=== PATIENT | female | born 1970 | race Caucasian/White ===

== ENCOUNTER 2021-01-28 16:02 | Inpatient (IN) ==
[2021-01-28] MEDS ORDERED: Naloxone 0.4 MG/ML INJ IVP PRN (22:48)
[2021-01-28] MEDS ORDERED: Melatonin 3 MG TABLET PO PRN (22:48)
[2021-01-29 01:14] LABS: Adenovirus Not Detected (Not Detect); Bordetella Pertussis Not Detected (Not Detect); Chlamydophila pneumoniae Not Detected (Not Detect); Coronavirus 229E Not Detected (Not Detect); Coronavirus HKU1 Not Detected (Not Detect); Coronavirus NL63 Not Detected (Not Detect); Coronavirus OC43 Not Detected (Not Detect); Human Metapneumovirus Not Detected (Not Detect); Human Rhinovirus/Enterovirus Not Detected (Not Detect); Influenza A Subtype 2009 H1 Not Detected (Not Detect); Influenza B Not Detected (Not Detect); Mycoplasma pneumoniae Not Detected (Not Detect); Parainfluenza Virus 1 Not Detected (Not Detect); Parainfluenza Virus 2 Not Detected (Not Detect); Parainfluenza Virus 3 Not Detected (Not Detect); Parainfluenza Virus 4 Not Detected (Not Detect); Respiratory Syncytial Virus Not Detected (Not Detect); SARS-CoV-2 Not Detected (Not Detect)
[2021-01-29 01:18] LABS: Basophils % 0.3 %; Eosinophils # 0.1 K/mcL (0.0-0.6); Eosinophils % 0.7 %; Hematocrit 39.3 % (35.3-44.9); Hemoglobin 14.2 g/dL (11.5-15.4); Immature Granulocytes % 1.6 % (0-4); Lymphocytes # 1.9 K/mcL (0.6-4.6); Mean Corpuscular HGB Conc 36.1 g/dL (31.6-35.5); Mean Corpuscular Hemoglobin 31.3 pg (28.0-33.3); Mean Corpuscular Volume 86.6 fL (83.0-100.0); Mean Platelet Volume 9.5 fL (9.4-12.4); Monocytes # 0.9 K/mcL (0.0-1.3); Monocytes % 5.9 %; Neutrophils # 12.3 K/mcL (1.6-8.9); Platelet Count 204 K/mcL (140-400); Red Blood Count 4.54 M/mcL (3.82-4.97); Red Cell Distribution Width 13.4 % (11.5-14.5); Segmented Neutrophils % 79.5 %; White Blood Count 15.5 K/mcL (4.3-11.1)
[2021-01-29 01:37] LABS: Albumin 3.1 g/dL (3.5-5.7); Albumin/Globulin Ratio 1.6 (1.1-2.2); Bilirubin,Direct 0.2 mg/dL (0.0-0.2); Bilirubin,Indirect 0.8 mg/dL (0.0-1.0); Chol/HDL Ratio 2.2 (0-4.9); Total Protein 5.1 g/dL (6.4-8.9)
[2021-01-29 01:57] LABS: BUN/Creatinine Ratio 16 (6-26); Blood Urea Nitrogen 18 mg/dL (6-20); Calcium 7.6 mg/dL (8.6-10.3); Carbon Dioxide 24 mEq/L (23-29); Chloride 73 mEq/L (98-107); Glucose 106 mg/dL (70-105); Osmolality,Calculated 224 (280-300); Potassium 3.5 mEq/L (3.5-5.1); Sodium 106 mEq/L (136-145); Troponin I 0.06 ng/mL (< 0.04); eGFR For African Americans > 60 (> 60); eGFR For Non-African Americans 51 (> 60)
[2021-01-29] MEDS ORDERED: Perflutren Lipid Microsphere 1.3 ML in 0.9 % Sodium Chloride 8.7 ML IVP PRN (02:22)
[2021-01-29] MEDS ORDERED: 0.9 % Sodium Chloride 1,000 ML IVC SCH ×3 (02:45→16:15)
[2021-01-29] MEDS ORDERED: Furosemide 20 MG/2 ML VIAL IVP ONE (02:45)
[2021-01-29 03:10] LABS: Chloride,Urine < 15 mEq/L; Potassium,Urine 42.8 mEq/L; Sodium, Urine < 10.0 mEq/L
[2021-01-29] MEDS: *HR* Heparin 5,000 UNIT/ML VIAL SQ SCH ×2 (05:28→17:06)
[2021-01-29 08:26] LABS: Troponin I 0.11 ng/mL (< 0.04)
[2021-01-29] MEDS: Furosemide 20 MG/2 ML VIAL IVP SCH ×2 (15:45→20:40)
[2021-01-29 16:57] LABS: Troponin I 0.03 ng/mL (< 0.04)
[2021-01-29 18:11] LABS: Bacteria,Urine Few per hpf (None-Few); Mucus,Urine Few per lpf (None-Few); RBC,Urine 0-3 per hpf (0-3); Squamous Epithelial Cell,Urine Few per hpf (None-Few); WBC,Urine 0-3 per hpf (0-3)
[2021-01-29 18:13] LABS: Protein/Creatinine Ratio,Urine 0.26 mg/mg (0.00-0.20)
[2021-01-29 18:22] LABS: Bilirubin,Urine Negative (Negative); Blood,Urine Moderate (Negative); Clarity,Urine Clear (Clear); Color,Urine Light-Yellow (Yellow); Glucose,Urine (UA) Normal (Normal); Ketones,Urine Negative (Negative); Leukocyte Esterase,Urine Negative (Negative); Nitrite,Urine Negative (Negative); PH,Urine 6.5 pH Units (5.0-8.0); Protein,Urine Negative (Neg-Trace); Specific Gravity,Urine 1.006 (1.010-1.025); Urobilinogen,Urine Normal (Normal)
[2021-01-30 02:25] LABS: Basophils % 0.3 %; Eosinophils # 0.1 K/mcL (0.0-0.6); Eosinophils % 0.9 %; Hematocrit 36.1 % (35.3-44.9); Hemoglobin 12.6 g/dL (11.5-15.4); Immature Granulocytes % 1.1 % (0-4); Lymphocytes # 1.8 K/mcL (0.6-4.6); Lymphocytes % 17.7 %; Mean Corpuscular HGB Conc 34.9 g/dL (31.6-35.5); Mean Corpuscular Hemoglobin 31.3 pg (28.0-33.3); Mean Corpuscular Volume 89.8 fL (83.0-100.0); Mean Platelet Volume 9.7 fL (9.4-12.4); Monocytes # 0.9 K/mcL (0.0-1.3); Monocytes % 8.3 %; Neutrophils # 7.4 K/mcL (1.6-8.9); Platelet Count 194 K/mcL (140-400); Red Blood Count 4.02 M/mcL (3.82-4.97); Red Cell Distribution Width 13.6 % (11.5-14.5); Segmented Neutrophils % 71.7 %; White Blood Count 10.3 K/mcL (4.3-11.1)
[2021-01-30 02:53] LABS: BUN/Creatinine Ratio 13 (6-26); Blood Urea Nitrogen 13 mg/dL (6-20); Carbon Dioxide 27 mEq/L (23-29); Chloride 81 mEq/L (98-107); Glucose 83 mg/dL (70-105); Magnesium 1.8 mg/dL (1.6-2.6); Osmolality,Calculated 239 (280-300); Phosphorous 2.6 mg/dL (2.7-4.5); Potassium 3.3 mEq/L (3.5-5.1); Sodium 115 mEq/L (136-145); eGFR For African Americans > 60 (> 60); eGFR For Non-African Americans 57 (> 60)
[2021-01-30] MEDS ORDERED: Potassium Phosphate 44 MEQ in 0.9 % Sodium Chloride 250 ML IVPB ONE (09:25)
[2021-01-30] MEDS: *HR* Heparin 5,000 UNIT/ML VIAL SQ SCH ×2 (09:48→17:06)
[2021-01-30] MEDS ORDERED: Ipratropium/Albuterol Neb 3 ML IH PRN (13:26)
[2021-01-30] MEDS ORDERED: 0.9 % Sodium Chloride 1,000 ML IVC SCH (13:45)
[2021-01-30] MEDS: Cholecalciferol (D-3) 1,000 UNIT (25MCG) TABLET PO SCH (13:56)
[2021-01-30] MEDS: Folic Acid 1 MG TABLET PO SCH (13:57)
[2021-01-30] MEDS ORDERED: polyethylene glycoL 3350 17 GM POWD.PACK PO PRN (14:32)
[2021-01-30] MEDS: *HR* Buprenorphine HCl 8 MG TAB.SUBL SL SCH ×2 (15:50→15:53)
[2021-01-31] MEDS: *HR* Heparin 5,000 UNIT/ML VIAL SQ SCH ×2 (05:29→17:20)
[2021-01-31 07:21] LABS: BUN/Creatinine Ratio 10 (6-26); Blood Urea Nitrogen 9 mg/dL (6-20); Calcium 8.5 mg/dL (8.6-10.3); Carbon Dioxide 29 mEq/L (23-29); Chloride 91 mEq/L (98-107); Glucose 97 mg/dL (70-105); Magnesium 2.2 mg/dL (1.6-2.6); Osmolality,Calculated 263 (280-300); Phosphorous 2.9 mg/dL (2.7-4.5); Potassium 3.6 mEq/L (3.5-5.1); Sodium 127 mEq/L (136-145); eGFR For African Americans > 60 (> 60); eGFR For Non-African Americans > 60 (> 60)
[2021-01-31] MEDS: Folic Acid 1 MG TABLET PO SCH (08:00)
[2021-01-31] MEDS ORDERED: D5% in Water 1,000 ML IVC SCH (08:00)
[2021-01-31] MEDS: Cholecalciferol (D-3) 1,000 UNIT (25MCG) TABLET PO SCH (08:00)
[2021-01-31] MEDS: *HR* Buprenorphine HCl 8 MG TAB.SUBL SL SCH ×3 (08:16→19:54)
[2021-01-31] MEDS ORDERED: Lidocaine Viscous Oral Soln 15 ML SOLUTION MM PRN (10:37)
[2021-01-31] MEDS ORDERED: *HR* Midazolam HCl 2 MG/2 ML VIAL IVP PRN (10:38)
[2021-01-31] MEDS ORDERED: 0.9 % Sodium Chloride 500 ML IVC ONE (10:38)
[2021-01-31 10:39] LABS: Basophils % 0.3 %; Eosinophils # 0.1 K/mcL (0.0-0.6); Eosinophils % 0.7 %; Hematocrit 34.2 % (35.3-44.9); Hemoglobin 11.9 g/dL (11.5-15.4); Immature Granulocytes % 0.9 % (0-4); Lymphocytes # 2.5 K/mcL (0.6-4.6); Lymphocytes % 22.4 %; Mean Corpuscular HGB Conc 34.8 g/dL (31.6-35.5); Mean Corpuscular Hemoglobin 32.1 pg (28.0-33.3); Mean Corpuscular Volume 92.2 fL (83.0-100.0); Mean Platelet Volume 9.9 fL (9.4-12.4); Monocytes # 1.2 K/mcL (0.0-1.3); Monocytes % 10.6 %; Neutrophils # 7.2 K/mcL (1.6-8.9); Platelet Count 267 K/mcL (140-400); Red Blood Count 3.71 M/mcL (3.82-4.97); Red Cell Distribution Width 13.8 % (11.5-14.5); Segmented Neutrophils % 65.1 %; White Blood Count 11.1 K/mcL (4.3-11.1)
[2021-01-31] MEDS ORDERED: *HR* Midazolam HCl 5 MG/5 ML VIAL IVP ONE (11:00)
[2021-01-31] MEDS: *HR* FentaNYL (PF) 100 MCG/2 ML VIAL IVP PRN ×2 (11:25→11:30)
[2021-01-31] MEDS: *HR* Midazolam HCl 5 MG/5 ML VIAL IVP ONE ×2 (11:30→11:35)
[2021-01-31] MEDS: Furosemide 20 MG/2 ML VIAL IVP SCH ×2 (12:51→19:53)
[2021-02-01 05:18] LABS: Basophils % 0.3 %; Eosinophils # 0.2 K/mcL (0.0-0.6); Eosinophils % 1.6 %; Hematocrit 33.7 % (35.3-44.9); Hemoglobin 11.4 g/dL (11.5-15.4); Immature Granulocytes % 0.9 % (0-4); Lymphocytes # 2.6 K/mcL (0.6-4.6); Lymphocytes % 23.3 %; Mean Corpuscular HGB Conc 33.8 g/dL (31.6-35.5); Mean Corpuscular Hemoglobin 31.8 pg (28.0-33.3); Mean Corpuscular Volume 93.9 fL (83.0-100.0); Mean Platelet Volume 9.4 fL (9.4-12.4); Monocytes # 1.2 K/mcL (0.0-1.3); Monocytes % 10.9 %; Platelet Count 253 K/mcL (140-400); Red Blood Count 3.59 M/mcL (3.82-4.97); Red Cell Distribution Width 14.2 % (11.5-14.5); White Blood Count 11.1 K/mcL (4.3-11.1)
[2021-02-01] MEDS: *HR* Heparin 5,000 UNIT/ML VIAL SQ SCH (05:29)
[2021-02-01 05:30] LABS: BUN/Creatinine Ratio 8 (6-26); Blood Urea Nitrogen 9 mg/dL (6-20); Calcium 8.5 mg/dL (8.6-10.3); Carbon Dioxide 31 mEq/L (23-29); Chloride 91 mEq/L (98-107); Glucose 107 mg/dL (70-105); Magnesium 1.9 mg/dL (1.6-2.6); Osmolality,Calculated 267 (280-300); Phosphorous 2.7 mg/dL (2.7-4.5); Potassium 3.4 mEq/L (3.5-5.1); Sodium 129 mEq/L (136-145); eGFR For African Americans > 60 (> 60); eGFR For Non-African Americans 54 (> 60)
[2021-02-01] MEDS: Cholecalciferol (D-3) 1,000 UNIT (25MCG) TABLET PO SCH (08:00)
[2021-02-01] MEDS: Folic Acid 1 MG TABLET PO SCH (08:00)
[2021-02-01] MEDS: *HR* Buprenorphine HCl 8 MG TAB.SUBL SL SCH (08:00)
[2021-02-01] MEDS: Furosemide 20 MG/2 ML VIAL IVP SCH (08:02)
[2021-02-01 10:25] LABS: HSV 1 Glycoprotein G IgG 4.95 IV (<=0.89); HSV 2 Glycoprotein G IgG 0.19 IV (<=0.89)
[2021-02-01 10:32] VITALS: BP 118/48; PULSE 66; TEMP 97.7; O2SAT 94
[2021-02-01] MEDS ORDERED: Hydrocortisone 10 MG TABLET PO SCH ×2 (15:00→21:00)
[2021-02-01] MEDS ORDERED: Isovue-370 500 ML BOTTLE IVP ONE (15:27)
[2021-02-03 08:15] LABS: Mycoplasma pneumoniae IgG 0.23 U/L (<=0.09)
== END 2021-02-01 18:55 | disposition home or self-care (01) | DRG 426 ==
LOC: 2NENU
PROVIDERS: ADMIT Student in an Organized Health Care Education/Training Program; ATTEND Student in an Organized Health Care Education/Training Program

== ENCOUNTER 2021-03-03 20:28 | Inpatient (IN) ==
[2021-03-03 21:23] LABS: Hematocrit 37.5 % (35.3-44.9); Immature Granulocytes % 0.7 % (0-4)
[2021-03-03 21:25] LABS: Basophils % 0.2 %; Eosinophils # 0.1 K/mcL (0.0-0.6); Eosinophils % 1.1 %; Hemoglobin 13.3 g/dL (11.5-15.4); Immature Platelets 7.5 % (1.1-6.1); Lymphocytes # 1.4 K/mcL (0.6-4.6); Lymphocytes % 24.5 %; Mean Corpuscular HGB Conc 35.5 g/dL (31.6-35.5); Mean Corpuscular Hemoglobin 31.1 pg (28.0-33.3); Mean Corpuscular Volume 87.8 fL (83.0-100.0); Mean Platelet Volume 11.5 fL (9.4-12.4); Monocytes # 0.6 K/mcL (0.0-1.3); Monocytes % 9.6 %; Neutrophils # 3.6 K/mcL (1.6-8.9); Platelet Count 199 K/mcL (140-400); Red Blood Count 4.27 M/mcL (3.82-4.97); Red Cell Distribution Width 13.9 % (11.5-14.5); Segmented Neutrophils % 63.9 %; White Blood Count 5.7 K/mcL (4.3-11.1)
[2021-03-03 21:48] LABS: Activated Partial Thrombo Time 38.9 Seconds (26.0-36.0)
[2021-03-03 21:50] LABS: Albumin/Globulin Ratio 1.4 (1.1-2.2); Bilirubin,Total 0.6 mg/dL (0.3-1.0); Calcium 9.1 mg/dL (8.6-10.3); Globulin 2.9 g/dL (2.4-3.5); Potassium 3.5 mEq/L (3.5-5.1); Total Protein 6.9 g/dL (6.4-8.9); Troponin I 0.03 ng/mL (< 0.04)
[2021-03-03] MEDS ORDERED: Isovue-370 500 ML BOTTLE IVP ONE (21:50)
[2021-03-03] MEDS ORDERED: 0.9 % Sodium Chloride 1,000 ML IV ONE (21:51)
[2021-03-03 22:28] LABS: Bacteria,Urine Few per hpf (None-Few); Bilirubin,Urine Negative (Negative); Blood,Urine Negative (Negative); Clarity,Urine Turbid (Clear); Color,Urine Yellow (Yellow); Glucose,Urine (UA) Normal (Normal); Hyaline Casts,Urine Few per lpf (None Seen); Ketones,Urine Negative (Negative); Leukocyte Esterase,Urine Negative (Negative); Mucus,Urine Few per lpf (None-Few); Nitrite,Urine Negative (Negative); Protein,Urine Trace mg/dL (Neg-Trace); RBC,Urine 0-3 per hpf (0-3); Specific Gravity,Urine 1.012 (1.010-1.025); Squamous Epithelial Cell,Urine Moderate per hpf (None-Few); Urobilinogen,Urine Normal (Normal)
[2021-03-04] MEDS ORDERED: Hydrocortisone Sodium Succ 100 MG/2 ML VIAL IVP ONE (01:23)
[2021-03-04] MEDS ORDERED: Naloxone 0.4 MG/ML INJ IVP PRN (01:27)
[2021-03-04] MEDS ORDERED: Melatonin 3 MG TABLET PO PRN (01:27)
[2021-03-04] MEDS ORDERED: *HR* Heparin 5,000 UNIT/ML VIAL IVP PRN ×2 (01:37)
[2021-03-04] MEDS ORDERED: *HR* Heparin 5,000 UNIT/ML VIAL IVP ONE (01:37)
[2021-03-04] MEDS ORDERED: Nicotine 14 MG PATCH.TD24 TD SCH (02:33)
[2021-03-04] MEDS: Heparin 25,000UNIT/250ML 1/2NS 25,000 UNIT/250 ML IV.SOLN IVC SCH ×2 (03:18→23:52)
[2021-03-04 05:46] LABS: Hematocrit 31.1 % (35.3-44.9); Mean Corpuscular HGB Conc 35.7 g/dL (31.6-35.5); Mean Corpuscular Hemoglobin 31.1 pg (28.0-33.3); Mean Corpuscular Volume 87.1 fL (83.0-100.0); Mean Platelet Volume 11.3 fL (9.4-12.4); Platelet Count 184 K/mcL (140-400); Red Blood Count 3.57 M/mcL (3.82-4.97); Red Cell Distribution Width 14.1 % (11.5-14.5)
[2021-03-04 05:53] LABS: Hemoglobin 11.1 g/dL (11.5-15.4)
[2021-03-04 06:02] LABS: INR 1.3; Prothrombin Time 14.7 Seconds (9.4-12.1)
[2021-03-04 06:41] LABS: Heparin anti-factor XA UFH 1.75 IU/mL (0.30-0.70)
[2021-03-04] MEDS ORDERED: Hydrocortisone Sodium Succ 100 MG/2 ML VIAL IVP SCH (07:00)
[2021-03-04 07:57] LABS: Calcium 8.5 mg/dL (8.6-10.3); Magnesium 2.1 mg/dL (1.6-2.6); Potassium 2.9 mEq/L (3.5-5.1)
[2021-03-04] MEDS: Folic Acid 1 MG TABLET PO SCH (08:54)
[2021-03-04] MEDS: Hydrocortisone Sodium Succ 100 MG/2 ML VIAL IVP SCH ×3 (08:54→19:47)
[2021-03-04] MEDS ORDERED: (Buprenorphine Hcl/Naloxone Hcl 8MG/2MG) PO SCH (09:00)
[2021-03-04] MEDS ORDERED: 0.9 % Sodium Chloride 500 ML ONE (09:32)
[2021-03-04] MEDS: 0.9 % Sodium Chloride 2,000 ML IVC SCH ×2 (10:48→18:18)
[2021-03-04 11:27] LABS: Calcium 8.2 mg/dL (8.6-10.3); Potassium 2.8 mEq/L (3.5-5.1)
[2021-03-04] MEDS: Piperacillin/Tazobactam 3.375 GM in 0.9 % Sodium Chloride Mini Bag 100 ML IVPB SCH (15:28)
[2021-03-04 15:57] LABS: Sodium, Urine 22.2 mEq/L
[2021-03-04 16:38] LABS: Calcium 8.7 mg/dL (8.6-10.3); Potassium 3.5 mEq/L (3.5-5.1)
[2021-03-04] MEDS ORDERED: Ondansetron 4 MG/2 ML VIAL IVP ONE (18:24)
[2021-03-04] MEDS: *HR* Buprenorphine HCl 8 MG TAB.SUBL SL SCH (19:47)
[2021-03-04] MEDS ORDERED: Nicotine 2 MG GUM BC PRN (19:49)
[2021-03-05] MEDS: Piperacillin/Tazobactam 3.375 GM in 0.9 % Sodium Chloride Mini Bag 100 ML IVPB SCH ×3 (00:15→15:49)
[2021-03-05] MEDS: Nicotine 21 MG PATCH.TD24 TD SCH ×2 (03:25→09:44)
[2021-03-05] MEDS: 0.9 % Sodium Chloride 2,000 ML IVC SCH ×2 (03:26→22:40)
[2021-03-05] MEDS: Hydrocortisone Sodium Succ 100 MG/2 ML VIAL IVP SCH ×4 (03:28→20:52)
[2021-03-05] MEDS: Folic Acid 1 MG TABLET PO SCH (08:40)
[2021-03-05] MEDS: *HR* Buprenorphine HCl 8 MG TAB.SUBL SL SCH ×2 (08:41→20:51)
[2021-03-05] MEDS: Megestrol Acetate 400 MG/10 ML UDC PO SCH ×2 (09:46→20:52)
[2021-03-05] MEDS: Aspirin 81 MG TAB.CHEW PO SCH (09:46)
[2021-03-05 10:16] LABS: Basophils % 0.1 %; Hematocrit 32.6 % (35.3-44.9); Hemoglobin 11.2 g/dL (11.5-15.4); Immature Granulocytes % 0.8 % (0-4); Lymphocytes # 0.5 K/mcL (0.6-4.6); Mean Corpuscular HGB Conc 34.4 g/dL (31.6-35.5); Mean Corpuscular Hemoglobin 30.6 pg (28.0-33.3); Mean Corpuscular Volume 89.1 fL (83.0-100.0); Mean Platelet Volume 10.8 fL (9.4-12.4); Monocytes # 0.3 K/mcL (0.0-1.3); Monocytes % 3.3 %; Neutrophils # 6.8 K/mcL (1.6-8.9); Platelet Count 212 K/mcL (140-400); Red Blood Count 3.66 M/mcL (3.82-4.97); Red Cell Distribution Width 13.9 % (11.5-14.5); Segmented Neutrophils % 88.8 %; White Blood Count 7.7 K/mcL (4.3-11.1)
[2021-03-05 10:50] LABS: Calcium 8.8 mg/dL (8.6-10.3); Potassium 3.6 mEq/L (3.5-5.1)
[2021-03-05] MEDS: Heparin 25,000UNIT/250ML 1/2NS 25,000 UNIT/250 ML IV.SOLN IVC SCH (15:57)
[2021-03-05 23:24] LABS: Calcium 8.6 mg/dL (8.6-10.3); Potassium 3.5 mEq/L (3.5-5.1)
[2021-03-06] MEDS: Hydrocortisone Sodium Succ 100 MG/2 ML VIAL IVP SCH (03:46)
[2021-03-06] MEDS: 0.9 % Sodium Chloride 2,000 ML IVC SCH (05:14)
[2021-03-06] MEDS ORDERED: *HR* Enoxaparin 40 MG/0.4 ML SYRINGE SQ SCH (06:00)
[2021-03-06 06:24] LABS: Basophils % 0.1 %; Hematocrit 31.1 % (35.3-44.9); Hemoglobin 10.6 g/dL (11.5-15.4); Immature Granulocytes % 0.9 % (0-4); Lymphocytes # 0.8 K/mcL (0.6-4.6); Lymphocytes % 7.6 %; Mean Corpuscular HGB Conc 34.1 g/dL (31.6-35.5); Mean Corpuscular Hemoglobin 31.2 pg (28.0-33.3); Mean Corpuscular Volume 91.5 fL (83.0-100.0); Monocytes # 0.7 K/mcL (0.0-1.3); Monocytes % 6.1 %; Neutrophils # 9.1 K/mcL (1.6-8.9); Platelet Count 193 K/mcL (140-400); Red Cell Distribution Width 14.1 % (11.5-14.5); Segmented Neutrophils % 85.3 %; White Blood Count 10.7 K/mcL (4.3-11.1)
[2021-03-06 07:01] LABS: Calcium 8.8 mg/dL (8.6-10.3); Potassium 3.6 mEq/L (3.5-5.1)
[2021-03-06] MEDS: Megestrol Acetate 400 MG/10 ML UDC PO SCH (08:52)
[2021-03-06] MEDS: *HR* Buprenorphine HCl 8 MG TAB.SUBL SL SCH (08:52)
[2021-03-06] MEDS: Aspirin 81 MG TAB.CHEW PO SCH (08:52)
[2021-03-06] MEDS: Folic Acid 1 MG TABLET PO SCH (08:52)
[2021-03-06] MEDS: Nicotine 21 MG PATCH.TD24 TD SCH (08:53)
[2021-03-06] MEDS ORDERED: Hydrocortisone 10 MG TABLET PO SCH ×2 (09:00→16:00)
[2021-03-06 10:01] VITALS: BP 178/78; PULSE 66; TEMP 97.7; O2SAT 95
== END 2021-03-06 12:58 | disposition home or self-care (01) | DRG 424 ==
LOC: 3ANU 20:28 → EMEROOARM 20:28 → SUATTDRO 03-04 01:27 → 3ANU 03-04 02:25
PROVIDERS: ADMIT Internal Medicine; ATTEND Hospitalist

== ENCOUNTER 2021-05-06 06:30 | Inpatient (IN) ==
[2021-05-06] MEDS ORDERED: Naloxone 0.4 MG/ML INJ IVP PRN (12:40)
[2021-05-06] MEDS: *HR* Heparin 5,000 UNIT/ML VIAL SQ SCH ×2 (15:42→23:02)
[2021-05-06 16:16] LABS: ABG Base Excess 5 mEq/L (-2 to 3); ABG HCO3 30 mEq/L (21-27); ABG Oxygen Saturation 95 % (95-98); ABG PCO2 45 mmHg (35-45); ABG PH 7.44 pH Units (7.32-7.45); ABG PO2 75 mmHg (85-104); ABG TCO2 32 mEq/L (20-26)
[2021-05-06] MEDS ORDERED: Ondansetron ODT 4 MG TAB.RAPDIS PO PRN (18:18)
[2021-05-07] MEDS: *HR* Heparin 5,000 UNIT/ML VIAL SQ SCH ×3 (06:00→20:12)
[2021-05-07 07:53] LABS: Basophils # 0.1 K/mcL (0.0-0.2); Basophils % 0.7 %; Eosinophils # 0.1 K/mcL (0.0-0.6); Eosinophils % 1.2 %; Hematocrit 38.7 % (35.3-44.9); Hemoglobin 12.7 g/dL (11.5-15.4); Immature Granulocytes % 2.3 % (0-4); Lymphocytes # 2.4 K/mcL (0.6-4.6); Lymphocytes % 20.1 %; Mean Corpuscular HGB Conc 32.8 g/dL (31.6-35.5); Mean Corpuscular Hemoglobin 31.4 pg (28.0-33.3); Mean Corpuscular Volume 95.8 fL (83.0-100.0); Monocytes % 8.3 %; Neutrophils # 8.1 K/mcL (1.6-8.9); Platelet Count 208 K/mcL (140-400); Red Blood Count 4.04 M/mcL (3.82-4.97); Red Cell Distribution Width 15.9 % (11.5-14.5); Segmented Neutrophils % 67.4 %; White Blood Count 11.9 K/mcL (4.3-11.1)
[2021-05-07 07:54] LABS: Potassium 4.4 mEq/L (3.5-5.1); Uric Acid 7.9 mg/dL (2.3-7.6)
[2021-05-07 08:08] LABS: Thyroid Stimulating Hormone 0.843 mcIU/mL (0.340-5.600)
[2021-05-07] MEDS: Nicotine 21 MG PATCH.TD24 TD SCH (09:37)
[2021-05-07] MEDS: Cholecalciferol (D-3) 1,000 UNIT (25MCG) TABLET PO SCH (09:40)
[2021-05-07] MEDS: Aspirin 81 MG TAB.CHEW PO SCH (09:41)
[2021-05-07] MEDS: Folic Acid 1 MG TABLET PO SCH (09:41)
[2021-05-07] MEDS: Hydrocortisone 10 MG TABLET PO SCH ×2 (09:42→16:18)
[2021-05-07] MEDS: Furosemide 20 MG/2 ML VIAL IVP SCH (09:46)
[2021-05-07] MEDS: NIFEdipine XL (24 HR) 60 MG TAB.ER.24 PO SCH (10:01)
[2021-05-07] MEDS: *HR* Buprenorphine HCl 8 MG TAB.SUBL SL SCH ×2 (10:44→20:12)
[2021-05-08 03:26] LABS: Basophils # 0.1 K/mcL (0.0-0.2); Basophils % 0.5 %; Eosinophils # 0.1 K/mcL (0.0-0.6); Eosinophils % 1.2 %; Hemoglobin 11.3 g/dL (11.5-15.4); Immature Granulocytes % 1.7 % (0-4); Lymphocytes # 1.9 K/mcL (0.6-4.6); Lymphocytes % 17.1 %; Mean Corpuscular HGB Conc 32.3 g/dL (31.6-35.5); Mean Corpuscular Hemoglobin 30.6 pg (28.0-33.3); Mean Corpuscular Volume 94.9 fL (83.0-100.0); Mean Platelet Volume 9.6 fL (9.4-12.4); Neutrophils # 7.7 K/mcL (1.6-8.9); Platelet Count 237 K/mcL (140-400); Red Blood Count 3.69 M/mcL (3.82-4.97); Red Cell Distribution Width 15.9 % (11.5-14.5); Segmented Neutrophils % 70.5 %; White Blood Count 10.9 K/mcL (4.3-11.1)
[2021-05-08 03:39] LABS: Calcium 8.7 mg/dL (8.6-10.3); Potassium 4.5 mEq/L (3.5-5.1)
[2021-05-08] MEDS: *HR* Heparin 5,000 UNIT/ML VIAL SQ SCH ×3 (05:29→21:34)
[2021-05-08] MEDS: Nicotine 21 MG PATCH.TD24 TD SCH (08:46)
[2021-05-08] MEDS: *HR* Buprenorphine HCl 8 MG TAB.SUBL SL SCH ×2 (08:48→21:34)
[2021-05-08] MEDS: Cholecalciferol (D-3) 1,000 UNIT (25MCG) TABLET PO SCH (08:48)
[2021-05-08] MEDS: Aspirin 81 MG TAB.CHEW PO SCH (08:48)
[2021-05-08] MEDS: NIFEdipine XL (24 HR) 60 MG TAB.ER.24 PO SCH (08:49)
[2021-05-08] MEDS: Furosemide 20 MG/2 ML VIAL IVP SCH (08:50)
[2021-05-08] MEDS: Hydrocortisone 10 MG TABLET PO SCH ×2 (08:50→16:43)
[2021-05-08] MEDS: Folic Acid 1 MG TABLET PO SCH (08:50)
[2021-05-08] MEDS ORDERED: Furosemide 20 MG/2 ML VIAL IVP ONE (09:05)
[2021-05-08] MEDS ORDERED: *HR* Metoprolol 5 MG/5 ML VIAL IVP PRN (10:15)
[2021-05-09 01:12] LABS: Basophils # 0.1 K/mcL (0.0-0.2); Basophils % 0.7 %; Eosinophils # 0.2 K/mcL (0.0-0.6); Eosinophils % 1.5 %; Hematocrit 36.1 % (35.3-44.9); Hemoglobin 11.2 g/dL (11.5-15.4); Immature Granulocytes % 1.4 % (0-4); Lymphocytes % 19.6 %; Mean Corpuscular Hemoglobin 30.9 pg (28.0-33.3); Mean Corpuscular Volume 99.7 fL (83.0-100.0); Mean Platelet Volume 9.5 fL (9.4-12.4); Monocytes % 9.4 %; Neutrophils # 6.8 K/mcL (1.6-8.9); Platelet Count 209 K/mcL (140-400); Red Blood Count 3.62 M/mcL (3.82-4.97); Segmented Neutrophils % 67.4 %; White Blood Count 10.1 K/mcL (4.3-11.1)
[2021-05-09 01:47] LABS: Calcium 8.6 mg/dL (8.6-10.3); Potassium 3.8 mEq/L (3.5-5.1)
[2021-05-09] MEDS: *HR* Heparin 5,000 UNIT/ML VIAL SQ SCH ×3 (06:02→21:00)
[2021-05-09] MEDS: Aspirin 81 MG TAB.CHEW PO SCH (08:03)
[2021-05-09] MEDS: *HR* Buprenorphine HCl 8 MG TAB.SUBL SL SCH ×2 (08:03→20:59)
[2021-05-09] MEDS: Nicotine 21 MG PATCH.TD24 TD SCH (08:03)
[2021-05-09] MEDS: Hydrocortisone 10 MG TABLET PO SCH ×2 (08:03→15:03)
[2021-05-09] MEDS: NIFEdipine XL (24 HR) 60 MG TAB.ER.24 PO SCH (08:03)
[2021-05-09] MEDS: Cholecalciferol (D-3) 1,000 UNIT (25MCG) TABLET PO SCH (08:04)
[2021-05-09] MEDS: Folic Acid 1 MG TABLET PO SCH (08:04)
[2021-05-09] MEDS ORDERED: Furosemide 40 MG/4 ML VIAL IVP SCH (09:00)
[2021-05-09] MEDS: Furosemide 40 MG/4 ML VIAL IVP SCH (21:00)
[2021-05-10] MEDS: *HR* Heparin 5,000 UNIT/ML VIAL SQ SCH ×3 (04:57→21:01)
[2021-05-10] MEDS: Folic Acid 1 MG TABLET PO SCH (08:08)
[2021-05-10] MEDS: Cholecalciferol (D-3) 1,000 UNIT (25MCG) TABLET PO SCH (08:08)
[2021-05-10] MEDS: NIFEdipine XL (24 HR) 60 MG TAB.ER.24 PO SCH (08:08)
[2021-05-10] MEDS: *HR* Buprenorphine HCl 8 MG TAB.SUBL SL SCH ×2 (08:08→21:01)
[2021-05-10] MEDS: Aspirin 81 MG TAB.CHEW PO SCH (08:08)
[2021-05-10] MEDS: Hydrocortisone 10 MG TABLET PO SCH ×2 (08:09→16:48)
[2021-05-10] MEDS: Nicotine 21 MG PATCH.TD24 TD SCH (08:09)
[2021-05-10] MEDS: Furosemide 40 MG/4 ML VIAL IVP SCH ×2 (08:09→21:01)
[2021-05-11 03:20] LABS: Basophils # 0.1 K/mcL (0.0-0.2); Basophils % 0.6 %; Eosinophils # 0.2 K/mcL (0.0-0.6); Eosinophils % 1.8 %; Hematocrit 36.8 % (35.3-44.9); Hemoglobin 11.6 g/dL (11.5-15.4); Immature Granulocytes % 1.3 % (0-4); Lymphocytes # 2.7 K/mcL (0.6-4.6); Lymphocytes % 19.6 %; Mean Corpuscular HGB Conc 31.5 g/dL (31.6-35.5); Mean Corpuscular Hemoglobin 30.8 pg (28.0-33.3); Mean Corpuscular Volume 97.6 fL (83.0-100.0); Mean Platelet Volume 9.8 fL (9.4-12.4); Monocytes # 1.4 K/mcL (0.0-1.3); Monocytes % 10.6 %; Platelet Count 264 K/mcL (140-400); Red Blood Count 3.77 M/mcL (3.82-4.97); Red Cell Distribution Width 15.7 % (11.5-14.5); Segmented Neutrophils % 66.1 %; White Blood Count 13.5 K/mcL (4.3-11.1)
[2021-05-11 03:28] LABS: Calcium 9.1 mg/dL (8.6-10.3); Potassium 4.4 mEq/L (3.5-5.1)
[2021-05-11] MEDS: *HR* Heparin 5,000 UNIT/ML VIAL SQ SCH (06:11)
[2021-05-11] MEDS: Nicotine 21 MG PATCH.TD24 TD SCH (08:21)
[2021-05-11] MEDS: Aspirin 81 MG TAB.CHEW PO SCH (08:21)
[2021-05-11] MEDS: *HR* Buprenorphine HCl 8 MG TAB.SUBL SL SCH (08:21)
[2021-05-11] MEDS: Furosemide 40 MG/4 ML VIAL IVP SCH (08:22)
[2021-05-11] MEDS: Hydrocortisone 10 MG TABLET PO SCH (08:22)
[2021-05-11] MEDS: Folic Acid 1 MG TABLET PO SCH (08:22)
[2021-05-11] MEDS: NIFEdipine XL (24 HR) 60 MG TAB.ER.24 PO SCH (08:22)
[2021-05-11] MEDS: Cholecalciferol (D-3) 1,000 UNIT (25MCG) TABLET PO SCH (08:22)
[2021-05-11 09:03] LABS: Albumin 4.6 g/dL (3.5-5.7)
[2021-05-11 09:28] VITALS: BP 142/68; PULSE 76; TEMP 97.6; O2SAT 98
== END 2021-05-11 12:09 | disposition home or self-care (01) | DRG 115 ==
LOC: 3NENU → SUATTDRO 11:05
PROVIDERS: ADMIT Internal Medicine; ATTEND Internal Medicine

== ENCOUNTER 2022-02-16 17:16 | Observation (INO) ==
[2022-02-16] MEDS ORDERED: Ondansetron 4 MG/2 ML VIAL IVP PRN (22:52)
[2022-02-16] MEDS ORDERED: Melatonin 3 MG TABLET PO PRN (22:52)
[2022-02-16] MEDS ORDERED: Naloxone 0.4 MG/ML INJ IVP PRN (22:52)
[2022-02-16] MEDS ORDERED: 0.9 % Sodium Chloride 1,000 ML IVC SCH ×2 (23:00)
[2022-02-17] MEDS ORDERED: Ipratropium/Albuterol Neb 3 ML IH PRN (00:39)
[2022-02-17 01:09] LABS: Hematocrit 35.2 % (35.3-44.9); Hemoglobin 11.3 g/dL (11.5-15.4); Mean Corpuscular HGB Conc 32.1 g/dL (31.6-35.5); Mean Corpuscular Hemoglobin 27.2 pg (28.0-33.3); Mean Corpuscular Volume 84.6 fL (83.0-100.0); Mean Platelet Volume 8.9 fL (9.4-12.4); Platelet Count 320 K/mcL (140-400); Red Blood Count 4.16 M/mcL (3.82-4.97); Red Cell Distribution Width 15.4 % (11.5-14.5); White Blood Count 17.3 K/mcL (4.3-11.1)
[2022-02-17 01:27] LABS: Calcium 8.9 mg/dL (8.6-10.3); Potassium 2.8 mEq/L (3.5-5.1)
[2022-02-17] MEDS: Hydrocortisone 10 MG TABLET PO SCH ×3 (03:09→18:13)
[2022-02-17] MEDS: *HR* Heparin 5,000 UNIT/ML VIAL SQ SCH ×3 (06:03→22:08)
[2022-02-17 06:23] LABS: Calcium 8.4 mg/dL (8.6-10.3)
[2022-02-17 09:55] LABS: Calcium 8.6 mg/dL (8.6-10.3); Potassium 2.9 mEq/L (3.5-5.1)
[2022-02-17] MEDS: *HR* Buprenorphine HCl 8 MG TAB.SUBL SL SCH ×2 (10:56→22:08)
[2022-02-17 11:34] LABS: Adenovirus Not Detected (Not Detect); Bordetella Pertussis Not Detected (Not Detect); Chlamydophila pneumoniae Not Detected (Not Detect); Coronavirus 229E Not Detected (Not Detect); Coronavirus HKU1 Not Detected (Not Detect); Coronavirus NL63 Not Detected (Not Detect); Coronavirus OC43 Not Detected (Not Detect); Human Metapneumovirus Not Detected (Not Detect); Human Rhinovirus/Enterovirus Not Detected (Not Detect); Influenza A Subtype 2009 H1 Not Detected (Not Detect); Influenza B Not Detected (Not Detect); Mycoplasma pneumoniae Not Detected (Not Detect); Parainfluenza Virus 1 Not Detected (Not Detect); Parainfluenza Virus 2 Not Detected (Not Detect); Parainfluenza Virus 3 Not Detected (Not Detect); Parainfluenza Virus 4 Not Detected (Not Detect); Respiratory Syncytial Virus Not Detected (Not Detect); SARS-CoV-2 Not Detected (Not Detect)
[2022-02-17 11:54] LABS: Hepatitis B Surface Antigen Nonreactive (Nonreactive)
[2022-02-17 12:23] LABS: Hepatitis B Core IgM Nonreactive (Nonreactive); Hepatitis C Virus Antibody Nonreactive (Nonreactive)
[2022-02-17 12:55] LABS: Hepatitis A Antibody IgM Nonreactive (Nonreactive)
[2022-02-17 14:03] LABS: Calcium 8.4 mg/dL (8.6-10.3)
[2022-02-17 17:12] LABS: Calcium 8.8 mg/dL (8.6-10.3); Potassium 3.3 mEq/L (3.5-5.1)
[2022-02-17] MEDS ORDERED: Nicotine 2 MG GUM BC PRN (21:39)
[2022-02-17] MEDS: Nicotine 21 MG PATCH.TD24 TD SCH (22:08)
[2022-02-17 22:37] LABS: Calcium 8.5 mg/dL (8.6-10.3); Potassium 3.5 mEq/L (3.5-5.1)
[2022-02-18 02:56] LABS: Hematocrit 33.2 % (35.3-44.9); Hemoglobin 10.6 g/dL (11.5-15.4); Mean Corpuscular HGB Conc 31.9 g/dL (31.6-35.5); Mean Corpuscular Hemoglobin 27.2 pg (28.0-33.3); Mean Corpuscular Volume 85.3 fL (83.0-100.0); Mean Platelet Volume 9.3 fL (9.4-12.4); Platelet Count 305 K/mcL (140-400); Red Blood Count 3.89 M/mcL (3.82-4.97); Red Cell Distribution Width 15.7 % (11.5-14.5)
[2022-02-18 03:07] LABS: Calcium 8.8 mg/dL (8.6-10.3); Potassium 3.3 mEq/L (3.5-5.1)
[2022-02-18 05:43] LABS: Calcium 8.9 mg/dL (8.6-10.3); Potassium 3.4 mEq/L (3.5-5.1)
[2022-02-18] MEDS: *HR* Heparin 5,000 UNIT/ML VIAL SQ SCH ×3 (06:35→21:41)
[2022-02-18] MEDS: *HR* Buprenorphine HCl 8 MG TAB.SUBL SL SCH ×2 (09:22→21:41)
[2022-02-18] MEDS: Hydrocortisone 10 MG TABLET PO SCH ×2 (09:22→17:18)
[2022-02-18] MEDS: Nicotine 21 MG PATCH.TD24 TD SCH (09:23)
[2022-02-18 09:28] LABS: Calcium 8.7 mg/dL (8.6-10.3); Potassium 3.4 mEq/L (3.5-5.1)
[2022-02-18 16:20] LABS: Bilirubin,Urine Negative (Negative); Blood,Urine Negative (Negative); Clarity,Urine Clear (Clear); Color,Urine Light-Yellow (Yellow); Glucose,Urine (UA) Normal (Normal); Ketones,Urine Negative (Negative); Leukocyte Esterase,Urine Negative (Negative); Nitrite,Urine Negative (Negative); PH,Urine 6.5 pH Units (5.0-8.0); Protein,Urine Trace mg/dL (Neg-Trace); Specific Gravity,Urine 1.009 (1.010-1.025); Urobilinogen,Urine Normal (Normal)
[2022-02-18 16:43] LABS: Creatinine,Urine 61 mg/dL; Sodium, Urine < 10.0 mEq/L
[2022-02-18] MEDS ORDERED: Mirtazapine 15 MG TABLET PO SCH (21:00)
[2022-02-19] MEDS: *HR* Heparin 5,000 UNIT/ML VIAL SQ SCH ×2 (06:00→14:32)
[2022-02-19] MEDS: Hydrocortisone 10 MG TABLET PO SCH (10:08)
[2022-02-19] MEDS: *HR* Buprenorphine HCl 8 MG TAB.SUBL SL SCH (10:08)
[2022-02-19] MEDS: Nicotine 21 MG PATCH.TD24 TD SCH (10:08)
[2022-02-19 11:38] VITALS: TEMP 97.8; O2SAT 96
[2022-02-19 12:21] LABS: Calcium 8.8 mg/dL (8.6-10.3); Potassium 3.5 mEq/L (3.5-5.1)
[2022-02-19 14:11] LABS: Calcium 8.5 mg/dL (8.6-10.3); Potassium 3.6 mEq/L (3.5-5.1)
[2022-02-19 14:15] LABS: Basophils # 0.1 K/mcL (0.0-0.2); Basophils % 0.4 %; Eosinophils # 0.1 K/mcL (0.0-0.6); Hematocrit 33.9 % (35.3-44.9); Hemoglobin 10.3 g/dL (11.5-15.4); Immature Granulocytes % 1.9 % (0-4); Lymphocytes % 16.6 %; Mean Corpuscular HGB Conc 30.4 g/dL (31.6-35.5); Mean Corpuscular Hemoglobin 27.5 pg (28.0-33.3); Mean Corpuscular Volume 90.4 fL (83.0-100.0); Mean Platelet Volume 9.6 fL (9.4-12.4); Monocytes % 8.7 %; Neutrophils # 8.4 K/mcL (1.6-8.9); Platelet Count 314 K/mcL (140-400); Red Blood Count 3.75 M/mcL (3.82-4.97); Red Cell Distribution Width 15.9 % (11.5-14.5); Segmented Neutrophils % 71.4 %; White Blood Count 11.8 K/mcL (4.3-11.1)
[2022-02-19 16:07] VITALS: BP 141/70; PULSE 102
== END 2022-02-19 17:00 | disposition home or self-care (01) ==
LOC: 2ANU → SUATTDRO 22:04
PROVIDERS: ADMIT Internal Medicine; ATTEND Internal Medicine